=== PATIENT | female | born 1995 ===

== ENCOUNTER 2024-05-12 08:11 | Outpatient (AMB) | payer OTHER, SELFPAY ==
--- NOTE | 2024-05-12 08:26 | MHC.OFFWIV ---
Intake Vital Signs 05/12/24 08:28 Weight 205 lb BP 120/80 Blood Pressure Location Lt brachial Position Sitting Pulse 80 Pulse Source Pulse Oximeter Temp 100.2 F Temp Source Oral Pulse Oximetry (%) 97 Oxygen Delivery Method Room Air Intake Visit Reasons: EP-fever, cough, vomiting, sore throat Intake Note: Patient here for cough, vomiting, nausea, fevers which has been going for about 3 days. Patient Tobacco Use Status: Never used Tobacco Allergies No Known Allergies Allergy (Verified 05/12/24 08:29) Do you need a note to return to daycare/school/sports/work: Yes HPI HPI Comments History of Present Illness Details Patient is a 29-year-old female complaining of 3 days of a last voiced, a productive cough with yellow and green sputum, right ear pain which is worse when she is vomiting, fevers with a T-max of a 105 degrees F, nausea and vomiting. She tells me she has been vomiting for 2 days. Patient states she did not test at home for COVID, she denies a history of asthma or COPD and is not a smoker. She tells me her son is at home sick with a cough but he is feeling better. She also tells me she has a colleague that lost her voice and had a cough last week but was better after 4 days. She has been taking ibuprofen Tylenol DayQuil and NyQuil. She is not able to keep much food down and has been vomiting and. [facility] Social History Patient Tobacco Use Status: Never used Tobacco Review of Systems Const All systems reviewed & are unremarkable except as noted in HPI and below Physical Exam Vital Signs: Last Vital Signs Temp 100.2 F 05/12/24 08:28 Pulse 80 05/12/24 08:28 BP 120/80 05/12/24 08:28 Pulse Ox 97 05/12/24 08:28 Oxygen Delivery Method Room Air 05/12/24 08:28 Const General: cooperative, healthy appearing, comfortable and no acute distress Orientation/consciousness: patient oriented x3 Limitations: no limitations HEENT Head: Yes normal to inspection Ears: hearing grossly normal bilaterally, external ears normal and TM's normal bilaterally General nose exam: Normal external nose present, Normal nares present and No nasal discharge present Face and sinus: Yes normal facial exam and Yes sinuses nontender Mouth: Normal oral and palatal mucosa present and moist mucous membranes Throat: Yes tonsils normal, Yes uvula midline and Yes posterior oropharynx abnormal (Erythema) Eyes General: appearance normal, both eyes and all related structures Neck Neck: Yes normal visual inspection Resp Effort & Inspection: normal respiratory effort, able to speak in complete sentences, Actively coughing, no respiratory distress, not tachypneic, no tripod positioning and no use of accessory muscles Auscultation: clear to auscultation bilaterally Cardio Rate: regular rate Rhythm: regular rhythm Heart sounds: normal S1 and S2 Skin General skin exam: no rashes or lesions noted Neuro General: patient oriented x3 Extrem General: Yes normal to inspection and Yes no clubbing, cyanosis or edema Assessment & Plan Assessment & Plan (1) URI (upper respiratory infection): Code(s): J06.9 - Acute upper respiratory infection, unspecified Qualifiers: URI type: unspecified URI Qualified Code(s): J06.9 - Acute upper respiratory infection, unspecified Plan: Vital signs stable, rapid strep in office was negative. Sent flu COVID and RSV testing, wrote a work note for her to stay out of the office for 4 days. Recommended supportive care, staying well hydrated and adding in some Gatorade. Likely a viral syndrome Plan see above Orders: Orders SARS-CoV2/FLU/RSV Today J06.9 - Acute upper respiratory infection, unspecified Medications: New benzonatate 200 mg PO TID PRN 14 caps 0RF cough ondansetron 4 mg PO Q8H PRN 10 tabs 0RF nausea and vomiting Coding Level of Care Code Est Pt Level 3 (49530) Diagnoses Upper respiratory tract infection, unspecified type J06.9 URI type: unspecified URI
[2024-05-12 08:28] VITALS: BP 120/80; PULSE 80; TEMP 37.9; O2SAT 97
== END 2024-05-12 09:15 | disposition home or self-care (01) ==
PROVIDERS: Visit Provider Physician Assistant
DX: J06.9 Acute upper respiratory infection, unspecified (principal)

== ENCOUNTER 2024-05-12 08:11 | Outpatient (REF) | payer OTHER, SELFPAY ==
[2024-05-12 13:32] LABS: Influenza A PCR NEGATIVE (Negative); Influenza B PCR NEGATIVE (Negative); Resp Syncy Virus RNA Qual PCR NEGATIVE (Negative); SARS COV2 PCR INHOUSE NEGATIVE (Negative)
== END 2024-05-12 08:12 | disposition home or self-care (01) ==
LOC: HO.LAB 08:11
PROVIDERS: Visit Provider Physician Assistant
DX: J06.9 Acute upper respiratory infection, unspecified (principal)
CPT/HCPCS: 0241U; 99212

== ENCOUNTER 2024-05-29 12:17 | Outpatient (AMB) | payer OTHER, SELFPAY ==
--- NOTE | 2024-05-29 13:24 | AM.OFFWIN_ITS ---
Intake Vital Signs 05/29/24 13:25 Weight 197 lb BP 100/70 Blood Pressure Location Lt brachial Position Sitting Pulse 74 Pulse Source Pulse Oximeter Temp 98.2 F Temp Source Oral Pulse Oximetry (%) 98 Oxygen Delivery Method Room Air Intake Visit Reasons: EP-sob, wheezing, cough Intake Note: Patient here for cough, wheezing, lightheaded and headaches that have been present for a few weeks. Patient Tobacco Use Status: Never used Tobacco Allergies No Known Allergies Allergy (Verified 05/29/24 13:26) Do you need a note to return to daycare/school/sports/work: No HPI HPI Comments History of Present Illness Details This is a 29-year-old female who presented to the walk-in clinic complaining of a persistent occasionally productive occasionally dry cough times 2 weeks in the setting of recent viral URI symptoms. Patient states she was seen here approximately 3 weeks ago and diagnosed with a viral upper respiratory tract infection. She states that those symptoms have resolved; however, she subsequently developed a hacking cough, which is occasionally dry and occasionally productive. She states she occasionally has shortness of breath when she gets coughing fits. She also occasionally has post-tussive emesis. She states she was given a prescription for benzonatate 3 weeks ago but this has not helped at all. Patient states she has been trying multiple [id number] medications without any relief. She denies any fevers or chills. She denies any chest pain. [facility] Social History Patient Tobacco Use Status: Never used Tobacco Review of Systems Const All systems reviewed & are unremarkable except as noted in HPI and below Reports no additional complaints Eyes Reports no additional complaints ENT Reports no additional complaints Card Reports no additional complaints Resp Reports no additional complaints GI Reports no additional complaints Reports no additional complaints Musc Reports no additional complaints Skin/Breast Reports system reviewed and no additional complaints, except as documented Neuro Reports no additional complaints Psych Reports no additional complaints Endo Reports no additional complaints Harris/Lymph Reports no additional complaints Aller/Immun Reports no additional complaints Physical Exam Vital Signs: Last Vital Signs Pulse 74 05/29/24 13:25 BP 100/70 05/29/24 13:25 Pulse Ox 98 05/29/24 13:25 Oxygen Delivery Method Room Air 05/29/24 13:25 Const Other: Vital signs reviewed. Constitutional: Non-toxic appearing. No acute distress. Well-developed and well-nourished. HEENT: Normocephalic and atraumatic. Skin: Warm and dry. No rashes or lesions noted. Neck: Full and painless range of motion. No cervical lymphadenopathy. Cardio: Regular rate and rhythm. No murmurs, gallops, or rubs. No lower extremity edema. No JVD. Pulmonary: No respiratory distress. No accessory muscle usage. Clear to auscultation bilaterally without wheezing, crackles, or rhonchi. Gastrointestinal: Soft, nontender, and nondistended in all 4 quadrants. Musculoskeletal: Normal range of motion in joints throughout the body. No deformity or other signs of injury. Neuro: Alert and oriented x4. Cranial nerves 2-12 grossly intact. No focal deficits appreciated. Psych: Normal mood and affect. Assessment & Plan Assessment & Plan (1) Post-viral cough syndrome: Code(s): R05.8 - Other specified cough Plan: This is a 29-year-old female who presented to the walk-in clinic complaining of a persistent occasionally productive occasionally dry cough times 2 weeks in the setting of recent viral URI symptoms. On physical examination, her lungs are clear to auscultation bilaterally. Patient very likely has a post viral cough syndrome versus acute bronchitis. Patient was given a prescription for p.o. prednisone 40 mg daily x5 days and p.o. azithromycin 500 mg today followed by 250 mg x 4 days. She was also given a prescription for promethazine / dextromethorphan as needed for cough. Recommended symptomatic management including rest, increased fluids, advil/tylenol for pain/fever, over the counter throat lozenges/decongestants, and humidifier at bedtime. Patient advised to follow up here or go to the emergency room for worsening/persistent symptoms. Patient verbalized understanding and is agreeable with the plan. Medications: New promethazine-DM 6.25-15 mg/5 mL 5 mL PO Q4-6H PRN 118 mL 0RF cough prednisone 40 mg (2 x 20 mg) PO DAILY 10 tabs 0RF azithromycin For 250 mg dose pack: take 500 mg today (day 1), then 250 mg for 4 days (days 2-5) PO 6 tabs 0RF Coding Level of Care Code Est Pt Level 3 (05811) Diagnoses Post-viral cough syndrome R05.8
[2024-05-29 13:25] VITALS: BP 100/70; PULSE 74; TEMP 36.8; O2SAT 98
== END 2024-05-29 13:50 | disposition home or self-care (01) ==
PROVIDERS: PCP Internal Medicine; Visit Provider Physician Assistant Medical
DX: R05.8 Other specified cough (principal)

== ENCOUNTER → 2024-05-29 12:17 | Outpatient (BNVA) | payer OTHER, SELFPAY | PROVIDERS: PCP Internal Medicine; Visit Provider Physician Assistant Medical | DX: R05.8 Other specified cough (principal) | CPT/HCPCS: 99212 ==